=== PATIENT | female | born 1965 | race American Indian/Alaskan Native ===

== ENCOUNTER 2021-03-24 08:00 | Outpatient (CLI) | payer OTHER ==
[~2021-03-24 08:00] MED LIST: TRAMADOL HCL50 MG PO
== END 2021-03-24 08:30 | disposition home or self-care (01) ==
LOC: PPH VACUNA 08:00
PROVIDERS: ATTEND Emergency Medicine Pediatric Emergency Medicine
DX: Z23 Encounter for immunization (principal)